=== PATIENT | female | born 2000 | race Two or more races ===

== ENCOUNTER 2022-06-24 10:36 | Inpatient (IN) | payer MEDICAID ==
[~2022-06-24] VITALS: Ht 160 cm; Wt 63.6 kg
[2022-06-24] MEDS ORDERED: HALOPERIDOL 5 MG TABLET PO PRN (16:45)
[2022-06-24] MEDS ORDERED: INFLUENZA VIRUS VACCINE QVS 2022-23 (6MO+)/PF 60 MCG/0.5 ML SYRINGE IM. ONE (17:15)
[2022-06-24 18:03] VITALS: BP 107/70
[2022-06-24] MEDS ORDERED: QUEtiapine FUMARATE 100 MG TABLET PO PRN (18:45)
[2022-06-24 20:38] VITALS: BP 105/67
[2022-06-24] MEDS: ZOLPIDEM TARTRATE 10 MG TABLET PO PRN (20:44)
[2022-06-24] MEDS ORDERED: BACITRACIN 28 GM OINTMENT TP PRN (22:00)
[2022-06-24] MEDS ORDERED: MAGNESIUM HYDROXIDE SUSPENSION 30 ML UDCUP PO PRN (22:00)
[2022-06-24] MEDS ORDERED: LOPERAMIDE HCL 2 MG CAPSULE PO PRN (22:00)
[2022-06-24] MEDS ORDERED: CloNIDine HCL 0.1 MG TABLET PO PRN (22:00)
[2022-06-24] MEDS ORDERED: ALBUTEROL SULFATE HFA 90 MCG/PUFF 8 GM INHALER IH PRN (22:00)
[2022-06-24] MEDS ORDERED: BENZOCAINE/MENTHOL LOZENGE PO PRN (22:00)
[2022-06-24] MEDS ORDERED: PETROLATUM,WHITE 28 GM JELLY TP PRN (22:00)
[2022-06-24] MEDS ORDERED: MAG HYDROX/AL HYDROX/SIMETH ES 30 ML SUSPENSION UDCUP PO PRN (22:00)
[2022-06-24] MEDS ORDERED: ACETAMINOPHEN 325 MG TABLET PO PRN (22:00)
[2022-06-24] MEDS ORDERED: OMEPRAZOLE 20 MG CAPSULE PO PRN (22:00)
[2022-06-24] MEDS ORDERED: ONDANSETRON HCL 4 MG TABLET PO PRN (22:00)
[2022-06-24] MEDS ORDERED: IBUPROFEN 600 MG TABLET PO PRN (22:00)
[2022-06-24] MEDS ORDERED: DOCUSATE SODIUM 100 MG CAPSULE PO PRN (22:00)
[2022-06-25 08:12] VITALS: BP 121/71
[2022-06-25] MEDS: LORazepam 2 MG TABLET PO PRN (08:16)
[2022-06-25] MEDS ORDERED: ATOMOXETINE HCL 40 MG CAPSULE PO SCH (13:30)
[2022-06-25] MEDS: BuPROPion HCL XL 150 MG ER TABLET PO SCH (14:31)
[2022-06-25] MEDS ORDERED: LURASIDONE HCL 40 MG TABLET PO SCH (17:00)
[2022-06-25] MEDS: ZOLPIDEM TARTRATE 10 MG TABLET PO PRN (20:07)
[2022-06-25 20:28] VITALS: BP 118/70
[2022-06-26] MEDS: LORazepam 2 MG TABLET PO PRN (07:06)
[2022-06-26 08:32] VITALS: BP 108/65
[2022-06-26] MEDS: BuPROPion HCL XL 150 MG ER TABLET PO SCH (08:32)
[2022-06-26] MEDS ORDERED: ATOMOXETINE HCL 10 MG CAPSULE PO ONE (09:00)
[2022-06-26] MEDS ORDERED: BUPR-50 PO (13:03)
[2022-06-26] MEDS ORDERED: LURA40TA2 PO ×2 (13:03→16:15)
[2022-06-26] MEDS ORDERED: ATOM40CA9 PO ×2 (13:03→16:15)
[2022-06-26] MEDS ORDERED: BUPR-49 PO (16:15)
[2022-06-27] MEDS ORDERED: ATOMOXETINE HCL 40 MG CAPSULE PO SCH (09:00)
== END 2022-06-26 16:48 | disposition home or self-care (01) | DRG 750 ==
LOC: B3A 16:47
PROVIDERS: ADMIT Psychiatry & Neurology Psychiatry; ATTEND Psychiatry & Neurology Psychiatry
DX: F25.0 Schizoaffective disorder, bipolar type (principal); F15.10 Other stimulant abuse, uncomplicated; F41.9 Anxiety disorder, unspecified; F90.9 Attention-deficit hyperactivity disorder, unspecified type; Z20.822 Contact with and (suspected) exposure to COVID-19; K59.00 Constipation, unspecified; G47.00 Insomnia, unspecified; F98.8 Other specified behavioral and emotional disorders with onset usually occurring in childhood and adolescence; Z79.899 Other long term (current) drug therapy
CPT/HCPCS: Z7610